=== PATIENT | female | born 1990 | race Caucasian/White ===

== ENCOUNTER 2018-05-02 20:28 | Emergency (ER) | payer OTHER ==
[2018-05-02 20:46] VITALS: RESP 16; TEMP 98.3
--- NOTE | 2018-05-02 21:16 | ED ---
Abdominal Pain HPI - General Chief Complaint: Abdominal Pain Stated Complaint: abd pain Source: patient Mode of arrival: ambulatory Limitations: no limitations - History of Present Illness Initial Comments: Jessica is a 27-year-old female who presents to the emergency department today for reevaluation of vaginal discomfort and pelvic pain. Patient reports that on Tuesday she developed some vaginal discomfort and discharge. Patient reports that she was evaluated an outside facility, she states that they did a urinalysis is also pelvic exam and cultures. She states that she was empirically treated with him Rocephin and prescribed doxycycline as well as Flagyl which she has been compliant with. Patient reports that she was not at that time. Patient reports that she has no concern for sexual transmitted infections but was agreeable to treatment anyway. Patient reports that throughout the day today she's had progressively worsening vaginal discomfort, burning and cramping in her pelvis. She reports that this is worse than any episode of bacterial vaginosis she has ever experienced in the past. She has a history of bacterial vaginosis but no history of sexual transmitted infections, no history of vaginal yeast infections. She denies any associated fever, change in bowel or bladder habits. She was treated approximately 1-2 weeks ago with a antibiotics for a urinary tract infection. She reports that her symptoms of urinary tract infection resolved completely prior to the development of this vaginal discomfort. - Related Data Home Medications Medication Instructions Recorded Confirmed Doxycycline Hyclate 100 mg PO BID 05/02/18 05/02/18 Ibuprofen [Advil] 600 mg PO Q8HR PRN 05/02/18 05/02/18 metroNIDAZOLE [Flagyl] 500 mg PO Q6HR 05/02/18 05/02/18 Allergies Allergy/AdvReac Type Severity Reaction Status Date / Time No Known Allergies Allergy Verified 05/02/18 21:02 Review of Systems ROS Statement: Those systems with pertinent positive or pertinent negative responses have been documented in the HPI. ROS Other: All systems not noted in ROS Statement are negative. Past Medical History Past Medical History: No Reported History History of Any Multi-Drug Resistant Organisms: None Reported Past Surgical History: Cholecystectomy Past Psychological History: ADD/ADHD Smoking Status: Never smoker Past Alcohol Use History: None Reported Past Drug Use History: None Reported General Exam - General Exam Comments Initial Comments: Physical Exam GENERAL: Patient is well-developed and well-nourished. Patient is nontoxic and well-hydrated and is in mild distress. Patient is curled up on the bed, tearful HENT: Normocephalic, Atraumatic. EYES: PERRL, EOMI PULMONARY: Unlabored respirations. No audible rales rhonchi or wheezing was noted. CARDIOVASCULAR: There is a regular rate and rhythm without any murmurs gallops or rubs. ABDOMEN: Soft and nontender with normal bowel sounds. SKIN: Skin is clear with no lesions or rashes and otherwise unremarkable. : External exam normal, no rashes or vesicles Vaginal vault with thick, dark, malodorous vaginal discharge Cervical motion tenderness and tenderness to palpation of right ovary NEUROLOGIC: Patient is alert and oriented x3. Moving all extremities spontaneously MUSCULOSKELETAL: Normal extremities with adequate strength and full range of motion. No lower extremity swelling or edema. No calf tenderness. PSYCHIATRIC: Normal psychiatric evaluation. Limitations: no limitations Limitations: no limitations Course Vital Signs 05/02/18 05/02/18 05/03/18 20:42 23:00 00:15 Temperature 98.3 F Pulse Rate 87 69 83 Respiratory 16 16 16 Rate Blood Pressure 129/84 114/77 131/81 O2 Sat by Pulse 99 98 99 Oximetry Medical Decision Making - Medical Decision Making The patient was seen and evaluated, history was obtained from the patient as well as significant other at bedside Patient was evaluated and treated empirically for sexual transmitted infections as well as bacterial vaginosis on Tuesday of this week. Patient now having worsening vaginal and pelvic discomfort Pelvic exam with some thick dark malodorous discharge, tenderness to palpation of the right ovary. I have a high suspicion that this patient has both bacterial vaginosis and a candidal yeast infection likely secondary to her recent antibiotic use. However given the patient's discomfort I will order an ultrasound to evaluate for a TOA. US with no obvious TOA, no acute pathology Patient with no SIRS criteria, continuing burning in her vagina I suspect the patient's symptoms are due to vaginal candidiasis I offered the patient further workup with blood work and CT though her symptoms are intravaginal more than pelvic or abdominal, patient declined further workup. Supportive care discussed, all questions pertaining to care answered to the best of my ability. Patient discharged home. - Lab Data Lab Results 05/02/18 05/02/18 Range/Units 21:35 21:35 Urine HCG, Qual Not Detected (Not Detectd) Trichomonas Ag (Rapid) Negative (Negative) Disposition Clinical Impression: Vaginal candidiasis, Bacterial vaginosis Disposition: HOME SELF-CARE Condition: Stable Instructions: Bacterial Vaginosis (ED), Yeast Infection (ED) Is patient prescribed a controlled substance at d/c from ED?: No Referrals: Brian Trotter DO [Primary Care Provider] - 1-2 days
[2018-05-02] MEDS ORDERED: FLUCONAZOLE 100 MG TAB PO ONE (21:40)
--- NOTE | 2018-05-02 23:31 | US ---
EXAM: US Pelvis, Transvaginal CLINICAL HISTORY: Reason: Pain right sided, not preg, concern for TOA TECHNIQUE: Real-time transvaginal pelvic ultrasound (complete) with image documentation. Transvaginal imaging was used for better evaluation of the endometrium and adnexa. COMPARISON: None available FINDINGS: Uterus/cervix: Uterus measures 8.6 x 4.0 x 4.5 cm. Uterus is unremarkable except for small cervical nabothian cysts. Endometrium measures 8.1 mm. No endometrial fluid collections identified. Right ovary: Right ovary not visualized. No definite abnormal adnexal masses or cysts identified. Left ovary: Left ovary not visualized. Free fluid: No pelvic free fluid. IMPRESSION: Ovaries not visualized bilaterally. No definite abnormal adnexal masses or cysts identified.
[2018-05-03 00:23] VITALS: BP 131/81; PULSE 83
[2018-05-03 15:51] LABS: N. gonorrhoeae,PCR Negative (Neg,Equiv); Neisseria Source Vagina
[2018-05-03 15:59] LABS: C. trachomatis,PCR Negative (Neg,Equiv); Chlamydia trachomatis Source Vagina
== END 2018-05-03 00:15 | disposition home or self-care (01) ==
LOC: EC 20:28
DX: N76.0 Acute vaginitis (principal); B37.3 Candidiasis of vulva and vagina; Z90.49 Acquired absence of other specified parts of digestive tract
CPT/HCPCS: 76830; 81025; 87070; 87205; 87491; 87591; 87808; 99284